=== PATIENT | male | born 1980 | race Caucasian/White ===

== ENCOUNTER 2019-11-17 16:09 | Emergency (ER) | payer BC, SELFPAY ==
[2019-11-17] VITALS (9 sets, daily range): BP systolic 119–167; BP diastolic 64–103; PULSE 89–122; RESP 14–20; TEMP 36.2; O2SAT 98–100; BMI 32.3
--- NOTE | 2019-11-17 16:28 | ED.DCSUM_ITS ---
History of Present Illness Chief Complaint: Abscess Informant: Patient Onset: Days Context: Sudden Onset Timing: Continuous Quality: Pain Location: Perineum near anal opening Current Severity: Mild Maximum Severity: Moderate Worsened by: Bowel movement Relieved by: Nothing Associated Symptoms: Documented fever to 101.8 degrees 2 days ago Narrative: Patient is a 39-year-old male with no significant past medical history who had a telemedicine conference 3 days ago. He was prescribed Augmentin for presumed perianal abscess. He has no history of Crohn's or inflammatory bowel disorder. He denies blood or mucus in the stool. He denies hemorrhoids. He denies blood on the toilet paper. He denies blood in the commode. He does not have history of diabetes nor does he have symptoms of diabetes. He states he has not had an elevated temperature in 48 hours. He did take antipyretic at approximately noon. He did have shaking chills 2 nights ago. He is not had shaking chills since. He denies headache, visual, ocular auditory symptoms. Denies history medic fever, heart murmur, SBE, mitral valve prolapse or being immune suppressed. He has no other complaints. Prior similar symptoms: No Recent Illness/Hospitalization: No Past Medical History - Allergies and Home Meds Allergies/Adverse Reactions: Allergies No Known Allergies Allergy (Verified 11/17/19 16:12) Primary Care Physician: Miya Ramirez MD [STAFF PHYSICIAN] - 2 Days for wound check NOT,DEFINED [NON-STAFF] - Prior records reviewed: No Surgical History: appendectomy Lives: Spouse/ Significant Other Smoking Status: Former smoker Alcohol: Rare Drugs: None Review of Systems General: Reports: Chills, Fever, Malaise. Denies: Subjective, Sweats Eyes: Denies: Visual changes - bilaterally, Blurred Vision - bilaterally ENT: Denies: Rhinorrhea, Sore throat Cardiovascular: Denies: Chest pain, Palpitations Respiratory: Denies: Dyspnea, Cough, Dyspnea on exertion Gastrointestinal: Denies: Abdominal pain, Nausea, Vomiting, Diarrhea, Melena, Hematochezia Genitourinary: Denies: Dysuria, Hematuria, Frequency Musculoskeletal: Denies: Myalgias, Arthralgias, Neck pain, Back pain, Swelling, Extremity Pain, -, - Skin: Reports: Abscess. Denies: Rash, Wounds Neurological: Denies: Headache, Weakness Endocrine: Denies: Polyuria, Polydipsia Hematologic: Denies: Easy bruising, Easy bleeding Physical Exam Vital Signs/Narrative: Vital Signs Temp Pulse Resp BP Pulse Ox 11/17/19 16:17 14 11/17/19 16:12 97.2 F L 122 H 16 148/97 H 99 Inital Vital Signs reviewed: Yes General: Well nourished, Well developed, No Acute Distress Head: Normocephalic, Atraumatic Eyes: Perrl, EOMI. Negative for: Pale conjunctiva, Scleral icterus ENT: Moist mucous membranes, No rhinorrhea Neck: Supple, Nontender Cardiovascular: Regular rhythm, No murmurs, Normal S1, Normal S2, Tachycardia Respiratory: No distress, CTA bilaterally, Chest nontender Abdomen: Soft, Nontender, Nondistended, Normal bowel sounds, No masses Rectal: - - There is fluctuance near the the anus between the anus and scrotum. There is slight erythema. On rectal exam there was no obvious bulge. Prostate was normal size and nontender. With significant pressure patient complained of mild discomfort. There was no blood or mucus noted. There was no fissure, fistula or hemorrhoids noted. : - - Unremarkable Back: Nontender, Normal Inspection Extremities: Nontender, No edema Skin: Normal color, No rash Neurological: Alert, Oriented x3, Cranial nerves II-XII grossly intact, Normal Strength, Normal Sensation Psychological: Normal affect, Normal Mood Diagnostic/Tx/Re-eval - Medical Decision Making Patient has a perianal abscess. Patient glass of water and ate 8 crackers 1/2- hour prior to presentation. Patient was informed since he ate it is not advisable to sedate him with IV anesthetic. He asked how long he would have to wait. He would prefer to wait. Based on time he ate prior to presentation plan is to perform deep sedation at 1800 using propofol. He was explained risk benefits. He denies allergy to soy products or egg products. He had no complication with prior anesthesia. Patient was offered pain medicine, which she declined. Case was discussed with Dr. Miya Ramirez. She states office staff would call patient for follow-up appointment this coming week. Procedures Procedure(s): 1. Deep sedation using a total of 150 mg of propofol. 2. Incision and drainage of perianal abscess. As previously documented patient was explained risk benefits of procedural sedation using propofol and need for I&D. He was given opportunity ask questions. None were asked. Patient identification was verified. Timeout was performed. Procedure started at 1817 and concluded at 1824. Incision was made with a 10 blade. Total length of incision 2.5 cm. Depth of cavity 4 to 5 cm. There was thick brown odiferous purulent material that drained from abscess. The cavity was irrigated. Wick was placed. Patient tolerated procedure well. He had mild discomfort at the end of the procedure. ED Disposition - Plan for ED Patient: Disposition: Home or Assisted Living Diagnosis: Perianal abscess Prescriptions: Oxycodone HCl/Acetaminophen [Percocet 5/325] 1 tab PO Q6H PRN PRN 3 Days #12 tab PRN Reason: Pain Prescription Printed Referrals: NOT,DEFINED [NON-STAFF] - Miya Ramirez MD [STAFF PHYSICIAN] - 2 Days for wound check Additional Instructions: Continue to take antibiotics were prescribed until gone.
[2019-11-17] MEDS: Ondansetron 4 MG/2 ML Vial IV (17:46)
[2019-11-17] MEDS: Ketorolac 15 MG/ML Vial IV (17:46)
[2019-11-17] MEDS: Morphine 4 MG/ML Syringe IV (17:47)
[2019-11-17] MEDS: Propofol 200 MG/20 ML Vial IV BOLUS (18:27)
--- NOTE | 2019-11-17 18:51 | ED.DCSUM_ITS ---
- ER Visit Summary Date of Service: 11/17/19 Chief Complaint: [] History of Present Illness: The patient is a 39 M [] Physical Examination: [] Test Results: [] Emergency Department Course and Treatment: [] Treatment Plan: [] Disposition: [] Impression: [] This note was generated with [employer] dictation software. It may contain incorrect words, spelling, and punctuation that were not noted in review of the chart prior to signing ED Disposition - Plan for ED Patient: Disposition: Home or Assisted Living Diagnosis: Perianal abscess Instructions: ED ABSCESS [facility] IandD Prescriptions: Oxycodone HCl/Acetaminophen [Percocet 5/325] 1 tab PO Q6H PRN PRN 3 Days #12 tab PRN Reason: Pain Prescription Printed Referrals: Miya Ramirez MD [STAFF PHYSICIAN] - 2 Days for wound check NOT,DEFINED [NON-STAFF] - Additional Instructions: Continue to take antibiotics were prescribed until gone.
--- NOTE | 2019-11-17 19:05 | ED.RN ---
REVIEWED D/C INSTRUCTIONS, FOLLOW UP CARE, PRESCRIPTION, AND S/S THAT WOULD WARRANT A RETURN TO THE ED WITH PT. PT VERBALIZED AN UNDERSTANDING AND DENIES FURTHER QUESTIONS FOR THIS RN. PT SKIN P/W/D, RESP EVEN AND UNLABORED, PT A&O X 3, NO DISTRESS NOTED. PT AMBULATED OUT OF ED, GAIT STEADY.
== END 2019-11-17 19:06 | disposition home or self-care (01) ==
PROVIDERS: Emergency Provider Emergency Medicine
DX: K61.0 Anal abscess (principal); Z87.891 Personal history of nicotine dependence
CPT/HCPCS: 10060; 96374; 96375; 99284; J7030; A4216; J2405